=== PATIENT | female | born 1995 | race Caucasian/White ===

== ENCOUNTER 2018-09-28 17:06 | Emergency (ER) | payer OTHER ==
[2018-09-28] MEDS ORDERED: IPRATROPIUM/ALBUTEROL 3 ML DEYVIAL IH ONE (18:36)
--- NOTE | 2018-09-28 18:37 | EDPHY ---
H & P Stated Complaint: cough uri symptoms dyspnea cp with breathing Time Seen by Provider: 09/28/18 18:29 HPI/ROS: CHIEF COMPLAINT: Cough and flu-like symptoms this morning HISTORY OF PRESENT ILLNESS: 23-year-old female on chronic immunosuppressant, Simponi, for ankylosing spondylitis, complaining of waking up with flu-like symptoms since this morning, nonproductive cough, sore throat, pleuritic chest pain. No dyspnea. No back or flank pain. No syncope or near syncope. No urinary abnormality. No nuchal rigidity. REVIEW OF SYSTEMS: 10 systems reviewed and negative with the exception of the elements mentioned in the history of present illness PAST MEDICAL & SURGICAL HISTORY: ankylosing spondylitis, chronic immunosuppressant therapy No influenza vaccination this season SOCIAL HISTORY: Nonsmoker PHYSICAL EXAM (Prior to examination, patient consented to physical exam, hands were washed and my usual and customary physical exam procedures followed) 1) GENERAL: Well-developed, well-nourished, alert and oriented. Appears to be in no acute distress. Appears nontoxic. Speaking full sentences. 2) HEAD: Normocephalic, atraumatic 3) HEENT: Pupils equal, round, reactive to light bilaterally. Sclera anicteric. Nasopharynx, oropharynx, clear, no lesions. MoistDry mucous membranes. Ears bilaterally with normal tympanic membranes. 4) NECK: Full range of motion, no meningeal signs. Nontender submandibular adenopathy bilaterally. 5) LUNGS: Clear auscultation bilaterally, no wheezes, no rhonchi, no retractions. 6) HEART: Regular rate and rhythm, no murmur, no heave, no gallop. 7) ABDOMEN: No guarding, no rebound, no focal tenderness, negative McBurney's, negative Proctor's, negative Rovsing's, negative peritoneal sign, 8) MUSCULOSKELETAL: Moving all extremities, no focal areas of tenderness, no obvious trauma. No peripheral edema or discoloration.negative Homans no palpable cord 9) BACK: No CVA tenderness, no midline vertebral tenderness, no fluctuance, no step-off, no obvious trauma, no visual or palpable abnormality. 10) SKIN: No rash, no petechiae. 11) Psychiatric: Patient is oriented X 3, there is no agitation. DIFFERENTIAL DIAGNOSIS: In no particular order, including but not limited to myocardial ischemia, pulmonary embolus, chest wall pain, pleural inflammation and pulmonary infectious causes. - Personal History LMP (Females 10-55): IUD In Place Current Tetanus Diphtheria and Acellular Pertussis (TDAP): Unsure - Medical/Surgical History Hx Asthma: No Hx Chronic Respiratory Disease: No Hx Diabetes: No Hx Cardiac Disease: No Hx Renal Disease: No Hx Cirrhosis: No Hx Alcoholism: No Other PMH: denies - Social History Smoking Status: Never smoked Constitutional: Initial Vital Signs Temperature (C) 37.1 C 09/28/18 17:30 Heart Rate 74 09/28/18 17:30 Respiratory Rate 18 09/28/18 17:30 Blood Pressure 119/65 09/28/18 17:30 O2 Sat (%) 98 09/28/18 17:30 O2 Delivery Mode Room Air Allergies/Adverse Reactions: No Known Allergies Allergy (Unverified 09/28/18 17:30) Home Medications: Medication Instructions Recorded Albuterol [Proventil Inhaler HFA 1 - 2 puffs IH Q4PRN PRN #1 mdi 09/28/18 (*)] Azithromycin [Zithromax] 500 mg PO DAILY #1 tablet 09/28/18 Benzonatate [Tessalon Pearles (RX)] 200 mg PO TID PRN #15 cap 09/28/18 SIMPONI 09/28/18 Medical Decision Making - Diagnostics Imaging Results: Imaging Impressions Chest X-Ray 09/28/18 18:37 Impression: Normal chest. Images reviewed myself ED Course/Re-evaluation: Low pretest probability for pulmonary embolus, she has a negative PERC score, she has concurrent URI symptoms. For all these reasons I think that pulmonary embolus is less than likely. Do not think that D-dimer testing indicated. Negative flu testing. I have recommended initiation of antibiotic therapy. At this time, although the patient has an immunosuppressed history, she is hemodynamically stable, not hypoxemic , I do not think she is septic, I think she can be treated on outpatient basis with very close follow-up and return precautions. Care of patient under supervision of secondary supervising physician Dr Gilbert with whom I discussed case. She feels comfortable this plan. Started on prophylactic antibiotics given her history of immunosuppressant medication, concerns over increased probability development of secondary bacterial infection. I think that meningitis is less than likely in this patient at this time. My usual and customary URI precautions instructions provided. She feels comfortable being discharged home. All questions and concerns addressed by myself 8:16 p.m.: Patient was being discharged being given her 1st dose of azithromycin she vomited her azithromycin. She will be given Zofran and further dose of azithromycin. - Data Points Laboratory Results: 09/28/18 18:40 Nasal Influenza A PCR NEGATIVE FOR FLU A (NEGATIVE) Nasal Influenza B PCR NEGATIVE FOR FLU B (NEGATIVE) Medications Given: Discontinued Medications Hydrocodone Bitart/Acetaminophen ([place] 5/325mg Prepack#6) 1 btl TAKEHOME EDNOW ONE Stop: 09/28/18 20:09 Last Admin: 09/28/18 20:33 Dose: 1 btl Albuterol/Ipratropium (Duoneb) 3 ml IH EDNOW ONE Stop: 09/28/18 18:37 Last Admin: 09/28/18 18:47 Dose: 3 ml Azithromycin (Zithromax) 500 mg PO EDNOW ONE PRN Reason: Protocol Stop: 09/28/18 20:07 Last Admin: 09/28/18 20:09 Dose: 500 mg Ondansetron HCl (Zofran Odt) 4 mg PO EDNOW ONE Stop: 09/28/18 20:16 Last Admin: 09/28/18 20:20 Dose: 4 mg Departure - Departure Disposition: Home, Routine, Self-Care Clinical Impression: Upper respiratory infection Qualifiers: URI type: unspecified URI Qualified Code(s): J06.9 - Acute upper respiratory infection, unspecified Condition: Good Instructions: Benzonatate (By mouth), Hydrocodone/Acetaminophen (By mouth), Albuterol (By breathing), Azithromycin (By mouth), Upper Respiratory Infection ( ED) Additional Instructions: Return to the emergency department immediately for change in breathing habits, change in voice, change in swallowing habits, change in mental status, or any other symptoms that concern you. Referrals: [facility]ulved[facility],. [Clinic] - 1 day without fail Prescriptions: Albuterol [Proventil Inhaler HFA (*)] 1 - 2 puffs IH Q4PRN PRN #1 mdi PRN Reason: Cough, Moderate Azithromycin [Zithromax] 500 mg PO DAILY #1 tablet Benzonatate [Tessalon Pearles (RX)] 200 mg PO TID PRN #15 cap PRN Reason: Cough, Moderate
--- NOTE | 2018-09-28 19:01 | CPEKG ---
Test Reason : OPEN Blood Pressure : / mmHG Vent. Rate : 067 BPM Atrial Rate : 072 BPM P-R Int : 142 ms QRS Dur : 080 ms QT Int : 399 ms P-R-T Axes : 018 074 059 degrees QTc Int : 422 ms Sinus arrhythmia Confirmed by Amado Gilbert ([id number]) on 09/28/2018 7:00:35 PM Referred By: Confirmed By:Amado Gilbert
[2018-09-28] MEDS ORDERED: AZITHROMYCIN 250 MG TAB PO ONE (20:06)
[2018-09-28] MEDS ORDERED: HYDROCOD/APAP 5/325 PREPACK#6 BTL TAKEHOME ONE (20:08)
[2018-09-28] MEDS ORDERED: ONDANSETRON DISINTEGRATING 4 MG TAB PO ONE (20:15)
[2018-09-28 20:22] VITALS: BP 122/72
== END 2018-09-28 20:37 | disposition home or self-care (01) ==
DX: J06.9 Acute upper respiratory infection, unspecified (principal)